=== PATIENT | female | born 1985 | race Asian ===

== ENCOUNTER 2021-07-22 03:42 | Inpatient (IN) | payer BC ==
[2021-07-22 04:34] LABS: Fetal Membranes Rupture RUPTURE DETECTED (No Rupture)
[2021-07-22 05:04] VITALS: BMI 34.1
[2021-07-22] MEDS ORDERED: HYDROcodone/Acetaminophen 5/325 mg Tablet PO PRN ×2 (05:21)
[2021-07-22] MEDS ORDERED: Misoprostol 200 MCG TAB PR PRN (05:21)
[2021-07-22] MEDS ORDERED: Diphenoxylate HCl/Atropine Tablet PO PRN ×2 (05:21)
[2021-07-22] MEDS ORDERED: Butorphanol Tartrate 1 MG/ML VIAL SLOW IVP PRN (05:21)
[2021-07-22] MEDS ORDERED: Ibuprofen 800 MG TAB PO PRN (05:21)
[2021-07-22] MEDS ORDERED: Promethazine HCl 25 MG/ML VIAL IM PRN ×2 (05:21→23:55)
[2021-07-22] MEDS ORDERED: Lidocaine 1% (PF) 30 ML VIAL SC PRN (05:21)
[2021-07-22] MEDS ORDERED: hydrALAZINE 20 MG/ML VIAL SLOW IVP PRN (05:21)
[2021-07-22] MEDS ORDERED: Methylergonovine 0.2 MG/ML VIAL IM PRN (05:21)
[2021-07-22] MEDS ORDERED: Ondansetron PF 4 MG/2 ML Vial IVP PRN ×2 (05:21→23:55)
[2021-07-22] MEDS ORDERED: Carboprost 250 MCG/ML AMP IM PRN (05:21)
[2021-07-22] MEDS ORDERED: NS w/ Oxytocin 30 units 500 ML IV SCH ×2 (05:30)
[2021-07-22] MEDS ORDERED: Lactated Ringer's 1,000 ML IV SCH (05:30)
[2021-07-22] MEDS ORDERED: ePHEDrine Sulfate 50 MG/10 ML VIAL ONE (06:00)
[2021-07-22] MEDS ORDERED: Bupivacaine 0.25% HCL 30 ML VIAL ONE (06:00)
[2021-07-22] MEDS ORDERED: Bupivacaine PF 0.5% 30 ML VIAL ONE (06:00)
[2021-07-22 06:36] LABS: Mean Corpuscular HGB CONC 32.1 g/dL (32.0-36.0); Mean Corpuscular Hemoglobin 26.9 pg (27.0-33.0); Mean Corpuscular Volume 83.9 fl (81.6-98.3); Mean Platelet Volume 12.3 fl (7.4-10.4); Platelet Count 209 10x3/uL (150-450); RBC Distribution Width 15.9 % (11.5-14.5); Red Blood Cell (RBC) Count 4.83 10x6/uL (3.90-5.03); White Blood Cell (WBC) Count 13.1 10x3/uL (3.5-10.5)
[2021-07-22 07:04] LABS: SARS-CoV-2 NAA Rapid Test Not Detected (NotDetected)
[2021-07-22 07:09] LABS: Syphilis Antibody Nonreactive (Nonreactive); Syphilis Antibody Index 0.02 S/CO (<1.00 Non-Reactive)
[2021-07-22 07:11] LABS: Hep B Surf Ag Non-Reactive S/CO (NonReactive)
[2021-07-22] MEDS ORDERED: Butorphanol Tartrate 1 MG/ML VIAL ONE (14:51)
[2021-07-22] MEDS ORDERED: Fentanyl 2 mcg/Bup 0.1% Cadd 100 ML ONE (23:07)
[2021-07-22] MEDS ORDERED: Communication Order-Pharmacy FS SCH (23:45)
[2021-07-22] MEDS ORDERED: Fentanyl 2 mcg/Bupivacaine 0.1% Cassette 100 ML EPIDURAL SCH (23:45)
[2021-07-22] MEDS ORDERED: PHENYLEPHRINE-NS 100 MCG/ML 10 ML SYRINGE ONE (23:53)
[2021-07-22] MEDS ORDERED: diphenhydrAMINE 50 MG/ML VIAL IVP PRN (23:55)
[2021-07-22] MEDS ORDERED: Hydrocerin (Eucerin) Cream 120 gm Jar TOP PRN (23:55)
[2021-07-22] MEDS ORDERED: Lactated Ringer's 500 ML IV PRN (23:55)
[2021-07-22] MEDS ORDERED: Acetaminophen 325 MG TAB PO PRN (23:55)
[2021-07-22] MEDS ORDERED: Naloxone HCl 0.4 mg/ml Vial IVP PRN ×2 (23:55)
[2021-07-22] MEDS ORDERED: ePHEDrine Sulfate 50 MG/10 ML VIAL SLOW IVP PRN (23:55)
[2021-07-23] MEDS ORDERED: CEFAZOLIN 1 GM VIAL ONE (01:03)
[2021-07-23] MEDS ORDERED: Azithromycin 500 MG VIAL ONE (01:03)
[2021-07-23] MEDS ORDERED: Methylergonovine 0.2 MG/ML VIAL ONE (01:05)
[2021-07-23] MEDS ORDERED: Carboprost 250 MCG/ML AMP ONE (01:05)
[2021-07-23] MEDS ORDERED: Misoprostol 200 MCG TAB ONE (01:05)
[2021-07-23] MEDS ORDERED: CEFAZOLIN 2 GM in Premix Bag 1 BAG IVPB SCH (01:15)
[2021-07-23] MEDS ORDERED: Azithromycin 1,000 MG in Sodium Chloride 0.9% 500 ML IVPB SCH (01:15)
[2021-07-23] MEDS ORDERED: Lidocaine 2% MPF 10 ML AMP (For Epidural Use) ONE (01:34)
[2021-07-23] MEDS ORDERED: Morphine PF 10 MG/10 ML VIAL ONE (01:38)
[2021-07-23] MEDS ORDERED: Oxytocin 10 UNITS/ML VIAL ONE (01:38)
[2021-07-23] MEDS ORDERED: Ondansetron PF 4 MG/2 ML Vial IVP PRN ×2 (01:55→05:42)
[2021-07-23] MEDS ORDERED: Hydrocerin (Eucerin) Cream 120 gm Jar TOP PRN (01:55)
[2021-07-23] MEDS ORDERED: Naloxone HCl 0.4 mg/ml Vial IVP PRN ×2 (01:55)
[2021-07-23] MEDS ORDERED: Promethazine HCl 25 MG/ML VIAL IM PRN (01:55)
[2021-07-23] MEDS ORDERED: Promethazine HCl 25 MG SUPP PR PRN (01:55)
[2021-07-23] MEDS ORDERED: Ketorolac Tromethamine 30 MG/ML VIAL IVP PRN (01:55)
[2021-07-23] MEDS ORDERED: Naloxone HCl 0.4 mg/ml Vial IV PRN (01:55)
[2021-07-23] MEDS ORDERED: diphenhydrAMINE 50 MG/ML VIAL IVP PRN (01:55)
[2021-07-23] MEDS ORDERED: Dexamethasone 4 mg/ml Vial ONE (01:56)
[2021-07-23] MEDS ORDERED: Ondansetron HCl/PF 4 MG/2 ML Vial IVP PRN (01:56)
[2021-07-23] MEDS ORDERED: Ondansetron PF 4 MG/2 ML Vial ONE (01:56)
[2021-07-23] MEDS ORDERED: Fentanyl 100 MCG/2 ML VIAL SLOW IVP PRN (01:56)
[2021-07-23] MEDS ORDERED: Meperidine HCl/PF 25 MG/ML VIAL SLOW IVP PRN (01:56)
[2021-07-23] MEDS ORDERED: Ketorolac Tromethamine 30 MG/ML VIAL IVP SCH (02:00)
[2021-07-23] MEDS ORDERED: Communication Order-Pharmacy FS SCH (02:00)
[2021-07-23] MEDS ORDERED: Misoprostol 200 MCG TAB PR PRN (05:42)
[2021-07-23] MEDS ORDERED: hydrALAZINE 20 MG/ML VIAL SLOW IVP PRN (05:42)
[2021-07-23] MEDS ORDERED: Lanolin Ointment 7 GM TUBE TOP PRN (05:42)
[2021-07-23] MEDS ORDERED: Boostrix 0.5 ML (Tdap) VIAL IM ONE (05:42)
[2021-07-23] MEDS ORDERED: NS w/ Oxytocin 30 units 500 ML IV SCH (05:42)
[2021-07-23] MEDS ORDERED: HYDROcodone/Acetaminophen 5/325 mg Tablet PO PRN ×6 (05:42→18:19)
[2021-07-23] MEDS: Lactated Ringer's 1,000 ML IV SCH ×3 (06:50→22:47)
[2021-07-23] MEDS: Prenatal Vitamin 1 TAB PO SCH (11:43)
[2021-07-23] MEDS: Ferrous Sulfate 325 MG TAB PO SCH ×2 (11:43→20:06)
[2021-07-23] MEDS: Simethicone Chewable 80 MG TAB PO PRN ×2 (18:37→22:02)
[2021-07-23] MEDS: Ibuprofen 800 MG TAB PO SCH (22:02)
[2021-07-24 05:38] LABS: Hemoglobin 12.1 g/dL (12.0-15.5); Mean Corpuscular HGB CONC 31.8 g/dL (32.0-36.0); Mean Corpuscular Volume 84.8 fl (81.6-98.3); Mean Platelet Volume 11.6 fl (7.4-10.4); Platelet Count 189 10x3/uL (150-450); RBC Distribution Width 16.3 % (11.5-14.5); Red Blood Cell (RBC) Count 4.48 10x6/uL (3.90-5.03); White Blood Cell (WBC) Count 23.5 10x3/uL (3.5-10.5)
[2021-07-24] MEDS ORDERED: Ibuprofen 800 MG TAB PO PRN (06:00)
[2021-07-24] MEDS: Ibuprofen 800 MG TAB PO SCH ×3 (06:11→21:49)
[2021-07-24] MEDS: Lactated Ringer's 1,000 ML IV SCH ×2 (06:13→14:22)
[2021-07-24] MEDS: Ferrous Sulfate 325 MG TAB PO SCH ×2 (08:25→17:45)
[2021-07-24] MEDS: Prenatal Vitamin 1 TAB PO SCH (08:26)
[2021-07-24] MEDS ORDERED: Docusate 100 MG CAP PO SCH (14:30)
[2021-07-24] MEDS: Simethicone Chewable 80 MG TAB PO PRN ×2 (14:37→21:49)
[2021-07-24] MEDS: Docusate 100 MG CAP PO SCH (21:49)
[2021-07-25] MEDS: Lactated Ringer's 1,000 ML IV SCH ×3 (01:37→13:59)
[2021-07-25] MEDS: Ibuprofen 800 MG TAB PO SCH ×3 (06:18→21:43)
[2021-07-25] MEDS: Prenatal Vitamin 1 TAB PO SCH (08:25)
[2021-07-25] MEDS: Docusate 100 MG CAP PO SCH ×2 (08:26→21:43)
[2021-07-25] MEDS: Ferrous Sulfate 325 MG TAB PO SCH ×2 (08:26→17:56)
[2021-07-25 10:06] LABS: Bilirubin Neg (Negative); Blood, Urine 250 (Negative); Clarity Clear (Clear); Glucose, Urine (Dipstick) Normal (Negative); Ketone, Urine Negative (Negative); Leukocyte 25 (Negative); Nitrite Negative (Negative); Protein, Urine (Dipstick) Negative (Neg-Trace); Urobilinogen Normal mg/dL (Less than 2)
[2021-07-25 11:06] LABS: Bacteria/HPF Rare-Few HPF (None Seen); Squamous Epithelial 0-3 HPF (0-3)
[2021-07-26] MEDS: Lactated Ringer's 1,000 ML IV SCH ×3 (03:52→14:38)
[2021-07-26] MEDS: Ibuprofen 800 MG TAB PO SCH ×2 (05:44→13:32)
[2021-07-26] MEDS: Prenatal Vitamin 1 TAB PO SCH (08:37)
[2021-07-26] MEDS: Ferrous Sulfate 325 MG TAB PO SCH (08:37)
[2021-07-26] MEDS: Docusate 100 MG CAP PO SCH (08:37)
[2021-07-26 08:50] VITALS: BP 125/71; TEMP 98.2
== END 2021-07-26 17:20 | disposition home or self-care (01) | DRG 788 ==
LOC: CSHLD/OP 03:42 → CSHLD 05:57 → CSHPP 07-23 05:10
PROVIDERS: ADMIT Student in an Organized Health Care Education/Training Program; ATTEND Student in an Organized Health Care Education/Training Program
PROC: 10D00Z1 Extraction of Products of Conception, Low, Open Approach (ICD-10-PCS; principal; 2021-07-22)
DX: O34.211 Maternal care for low transverse scar from previous cesarean delivery (principal); Z20.822 Contact with and (suspected) exposure to COVID-19; O24.425 Gestational diabetes mellitus in childbirth, controlled by oral hypoglycemic drugs; O42.12 Full-term premature rupture of membranes, onset of labor more than 24 hours following rupture; O76 Abnormality in fetal heart rate and rhythm complicating labor and delivery; O69.81X0 Labor and delivery complicated by cord around neck, without compression, not applicable or unspecified; Z3A.40 40 weeks gestation of pregnancy; Z37.0 Single live birth; O99.892 Other specified diseases and conditions complicating childbirth; N73.6 Female pelvic peritoneal adhesions (postinfective)
CPT/HCPCS: 36415; 36416; 51702; 81001; 84112; 85027; 86780; 86850; 86900; 86901; 87340; J0595; J1100; J1885; J2274; J2405; J2590; S0020; U0002

== ENCOUNTER 2021-08-16 14:00 | Outpatient (CLI) | payer BC | END 2021-08-16 14:01 | disposition home or self-care (01) | LOC: CSHULT 14:00 | PROVIDERS: ATTEND Family Medicine | DX: I83.11 Varicose veins of right lower extremity with inflammation (principal); I80.3 Phlebitis and thrombophlebitis of lower extremities, unspecified ==

== ENCOUNTER 2022-03-20 14:01 | Outpatient (CLI) | payer BC | END 2022-03-20 14:02 | disposition home or self-care (01) | LOC: CSHULT 14:01 | PROVIDERS: ATTEND Advanced Practice Midwife | DX: E04.9 Nontoxic goiter, unspecified (principal) | CPT/HCPCS: 76536 ==